=== PATIENT | male | born 1970 | race American Indian/Alaskan Native ===

== ENCOUNTER 2017-04-20 13:50 | Outpatient (CLI) | payer OTHER ==
--- NOTE | 2017-04-20 15:04 | Magnetic Resonance Report ---
MR LOWER EXTREMITY JOINT LEFT WITHOUT CONTRAST HISTORY: Left knee pain, evaluate for torn meniscus, swelling. TECHNIQUE: Multisequence, multiplanar MRI without contrast. COMPARISON: No relevant comparisons at this facility. FINDINGS: A large joint effusion is identified which extends to the suprapatellar bursa. There is also a moderate to large popliteal cyst measuring 2.5 x 2.3 x 5.1 cm. The posterior horn of the medial meniscus is markedly abnormal. The posterior horn appears to be fragmented. A portion of the posterior horn of the medial meniscus is not clearly identified and may be absent. There are no obvious free bodies within knee joint effusion. The lateral meniscus is intact. There is moderate to severe cartilage thinning throughout are all 3 compartments of the left knee. The medial compartment is most affected where there is near-complete loss of cartilage. There is no evidence for fracture, bone lesion or osteochondral defect. The ACL, PCL, MCL, LCL complex and extensor complex are intact. No ligamentous injury. The popliteus is unremarkable. The periarticular musculature is within normal limits. IMPRESSION: Complex tear/fragmentation of the posterior horn of the medial meniscus. Advanced cartilage loss particularly in the medial compartment. No osteochondral defect is detected. Large joint effusion and popliteal cyst.
== END 2017-04-20 13:51 | disposition home or self-care (01) ==
LOC: MRI 13:50
PROVIDERS: ATTEND Internal Medicine
DX: S83.242A Other tear of medial meniscus, current injury, left knee, initial encounter (principal); M71.22 Synovial cyst of popliteal space [Baker], left knee; M21.962 Unspecified acquired deformity of left lower leg; X58.XXXA Exposure to other specified factors, initial encounter; Y93.89 Activity, other specified; Y92.89 Other specified places as the place of occurrence of the external cause; Y99.8 Other external cause status
CPT/HCPCS: 73721